=== PATIENT | female | born 1995 | race Caucasian/White ===

== ENCOUNTER 2023-12-10 11:55 | Inpatient (IN) ==
[2023-12-10] MEDS ORDERED: ONDANSETRON INJ 2 MG/ML 2 ML VIAL IV PRN ×2 (12:12→16:37)
[2023-12-10] MEDS ORDERED: ACETAMINOPHEN 325 MG TAB PO PRN (12:12)
--- NOTE | 2023-12-10 12:30 | History & Physical Report ---
Date of Service December 10, 2023 Assessment & Plan (1) Febrile illness: Plan: Patient presents with symptoms of back ache, loss of bladder control during repeated episodes of emesis, and is also found to have fever and tachypnea/tachycardia, with normal O2 sat on RA. No objective signs right now of labor or ROM. Suspect armen londono and urinary incontinence. She currently denies sick contacts or other symptoms but will run BioFire panel, high local rates of Influenza currently and patient with tachypnea. O2 sats currently OK. heart tones Cat 2 but most c/w maternal fever and dehydration; will attempt resuscitation steps with IV hydration and tylenol, could move to delivery if unable to normalize soon. History of Present Illness Primary Care Provider: NO PCP 28yo at 38w0d. Patient notes daily vomiting up to 4x/day during this . Beginning this morning at 0730 she vomited but did not think much of it as she usually does so. Shortly thereafter she began having what the thought were "hot flashes" but did not take her temperature. She called our office to c/o "dehydration" as she stated to our OB nurse that she "often gets dehydrated because of the vomiting" and she thought she might need to go to the ER for IV fluids. Was told to do so. On arrival to ER triage area, patient was found to have soaking wet pants c/w either urination or ROM. Patient states she knows she lost control of her bladder during an episode of emesis, but also has had disorganized cramping for several days, so due to concern for ROM/Labor she was sent to L&D. Patient triaged immediately on arrival to L&D. She c/o non-timeable back pain that she does not believe is c/w contractions but nonetheless quite uncomfortable, and asserts the baby is "very low" as it "dropped a few days ago" so she's been having worse back pain. Has been feeling FM but feels it's less intense than it was before the baby "dropped." Allergies Allergy/AdvReac Type Severity Reaction Status Date / Time No Known Allergies Allergy Verified 12/04/23 11:07 Home Medications Medication Instructions Recorded Confirmed Type [id number] acid PO 05/13/23 12/04/23 History [ Multi] Past Med/Surg History Medical History Anemia Varicella vaccination Surgical History S/P wisdom tooth extraction S/P knee surgery S/P breast lumpectomy Family History Grandmother (Maternal) Breast cancer Grandfather (Maternal) Colorectal cancer Denies family history of Ovarian cancer Social History Smoking Status: Never smoker Do You Dip or Chew Tobacco: No; Hx Alcohol Use: No Hx Substance Use: No Preferred Language: Maltese Communication Ability: Effective Transport Tank Technician Required: No Beliefs That Will Affect Care: None marital status: marital status details: Leandro Batista (29) [phone] Current Living Situation: Spouse Current Living Situation Comment: lives with spouse, children, dog current occupational status: unemployed current occupation: homemaker Other Information That Helps Us Care for You: No Feels Safe at Home: Yes Safety Concerns: Feels Safe At This Time Assistive Devices: None Physical Exam Genitourinary: She is noted to have fever of 103F, tachypnea, facial flushing, and urine odor with soaked pants / wheelchair seat. SSE shows no evidence of ROM; thick white leukorrhea without any clear fluid mixed in, cervix visually closed. Digital exam then shows 1/th/hi cervix. FHT are baseline 180 with mod veronica no accels no decels, likely 2/2 maternal fever. Results & Data Results & Data Vital Signs (Past 12 Hours) Vital Signs Pulse BP Pulse Ox 12/10/23 12:11 116 H 98 12/10/23 12:09 125 H 130/66 Code Status & VTE Plan VTE Prophylaxis Plan VTE Prophylaxis will be ordered: Yes PG Care Time/CCT Total # of Minutes Spent Total Time Spent with Patient: Total time spent is greater than 50% in coordination of care (as documented) at patient's floor/unit and/or counseling patient: Coding Level of Care Code None Diagnoses Febrile illness R50.9
[2023-12-10 12:44] LABS: Eosinophils # (auto) 0.02 K/uL (0.00-0.50); Eosinophils % (auto) 0.4 %; Hematocrit (blood only) 30.2 % (37.0-47.0); Immature Granulocytes # (auto) 0.02 K/uL (0.01-0.20); Immature Granulocytes % (auto) 0.4 %; Lymphocytes # (auto) 0.19 K/uL (1.20-3.40); Lymphocytes % (auto) 3.6 %; Mean Corpuscular Hemoglobin 26.2 pg (25.0-34.0); Mean Corpuscular Hgb Conc 33.1 g/dL (32.0-36.0); Mean Corpuscular Volume 79.1 fL (80.0-100.0); Mean Platelet Volume 10.3 fL (9.4-12.4); Monocytes # (auto) 0.51 K/uL (0.11-0.59); Monocytes % (auto) 9.6 %; Neutrophils # (auto) 4.55 K/uL (1.40-6.50); Platelet Count 227 K/uL (130-400); RDW Coefficient of Variation 14.7 % (11.5-14.5); RDW Standard Deviation 41.7 fL (36.4-46.3); Red Blood Count 3.82 M/uL (4.20-5.40); White Blood Count 5.29 K/ul (4.8-10.8)
[2023-12-10] MEDS: LACTATED RINGER'S 1,000 ML IV PRN (12:44)
[2023-12-10] MEDS: ACETAMINOPHEN 650 MG SUPP PR STA (12:49)
[2023-12-10 13:07] LABS: Albumin Globulin Ratio 1.1 (0.9-2); Albumin Level 3.2 gm/dl (3.4-5.0); BUN Creatinine Ratio 13.6 (10-20); Bilirubin,Total 0.4 mg/dl (0.2-1.0); Calcium 8.3 mg/dl (8.6-10.3); Creatinine Clr Calc Pharmacy 167.7 ml/min; Est GFR (African American) 143.6 ml/min; Est GFR (Non-African American) 123.9 ml/min; Globulin 2.9 gm/dl (2.5-4.0); Potassium 3.8 mmol/L (3.5-5.1); Total Protein 6.1 gm/dl (6.0-8.3)
[2023-12-10 14:11] LABS: Appearance Urine Cloudy (Clear); Blood Urine Negative (Negative); Color Urine Dark Yellow; Epithelial Cell Urine Auto >30 /lpf (0-5); Glucose Urine UA Negative (Negative); Ketones Urine 1+ (Negative); Leukocyte Esterase Urine 1+ (Negative); Nitrite Urine Negative (Negative); Protein Urine Trace (Negative); RBC Urine Automated 0-4 /hpf (0-4); Specific Gravity Urine 1.028 (1.000-1.030); Urobilinogen Urine Negative (Negative); pH Urine 6.5 (4.5-7.5)
[2023-12-10 14:13] LABS: Bilirubin Urine 1+ (Negative)
[2023-12-10 14:18] LABS: Adenovirus PCR Not Detected (NotDetected); Bordetella parapertussis PCR Not Detected (NotDetected); Bordetella pertussis PCR Not Detected (NotDetected); Chlamydia pneumoniae PCR Not Detected (NotDetected); Coronavirus 229E PCR Not Detected (NotDetected); Coronavirus CoV-2 (COVID19)PCR Not Detected (NotDetected); Coronavirus HKU1 PCR Not Detected (NotDetected); Coronavirus NL63 PCR Not Detected (NotDetected); Coronavirus OC43PCR Not Detected (NotDetected); Human Metapneumovirus PCR Not Detected (NotDetected); Influenza A PCR Not Detected (NotDetected); Influenza B PCR Not Detected (NotDetected); Mycoplasma pneumoniae PCR Not Detected (NotDetected); Parainfluenza Virus 1 PCR Not Detected (NotDetected); Parainfluenza Virus 2 PCR Not Detected (NotDetected); Parainfluenza Virus 3 PCR Not Detected (NotDetected); Parainfluenza Virus 4 PCR Not Detected (NotDetected); Respiratory Syncytial VirusPCR Not Detected (NotDetected); Rhinovirus/Enterovirus PCR Not Detected (NotDetected)
[2023-12-10 14:26] LABS: Bacteria Urine Automated 1+ (Negative)
--- NOTE | 2023-12-10 14:55 | Obstetrical Progress Note ---
Date of Service December 10, 2023 Assessment & Plan (1) Febrile illness: Plan: Unclear etiology of fever, however seems not likely respiratory viral due to negative panel, not likely urine though culture is pending, doubt chorio with 2x negative SSE for ROM, but status nonreassuring and will proceed with recommendation for . (2) History of delivery, currently : Subjective Results reviewed - Temp has decreased to as low as 100.2F. Resp rate improved but still elevated at 28. No leukocytosis. BioFire panel all negative. Urine contaminated, not strongly suggestive of a urinary source of fever. Pt was made aware. Patient was re-questioned about her history of recent events as I am struggling to find an etiology for her fever of 103. She has a wandering way of answering questions and needed to be redirected often, with FOB also adding some details, noting as he spoke up that the patient is sleep deprived and very tired so he might need to help her remember and relate the recent events. New info includes that she awoke at 3am with chills and took a warm shower due to those, which she previously had not mentioned. She also says that she had timeable contractions three days ago but they never got closer than 30 min apart. Since then, when she complains of cramping it has been disorganized and in the low back and pelvis, and she mentions often that she feels this is due to the baby's head being very low. She also thought her water broke a few weeks ago but reports she was examined and this was ruled out. She has a very red flushed-appearing face, and while it has improved since her fever was at its highest, she is still juan jose-cheeked. She notes this is her baseline due to Rosacea and FOB notes this is a normal degree of redness for her. She denies urinary symptoms, she denies sore throat, denies cough, denies sick contacts. She says her pain has been 7/10 in the low back since her arrival. She is again asking for narcotic pain management. Previously I discussed with her that since she was speaking normally and in no obvious distress, I preferred to use only tylenol for what is likely normal third-trimester discomfort so I could better interpret her FHT. Physical Exam Physical Exam: Obese / gravid female appearing stated age. Red cheeks. Still has notably elevated breathing rate but not in distress. Resting supine with HOB up about 30deg. Mask on chin, pt not eager to wear this, asks if she needs to. Speaking at normal rate/rhythm. Abdomen / fundus nontender, per RN Smeal and I agree. Cervix SSE repeated to r/o ROM again and still has no pooling and nitrazine negative fluid. FHT had been 160 mod veronica -acc -dec, however as I sit to write this note, deep variables resumed Q5min. Results & Data Vital Signs (Past 12 Hours) Vital Signs Temp Pulse Resp BP Pulse Ox 12/10/23 14:43 96 12/10/23 14:43 114 H 12/10/23 14:39 92 12/10/23 14:39 111 H 12/10/23 14:38 97 12/10/23 14:38 119 H 12/10/23 14:33 97 12/10/23 14:33 119 H 12/10/23 14:28 95 12/10/23 14:28 118 H 12/10/23 14:27 94 12/10/23 14:27 111 H 12/10/23 14:23 96 12/10/23 14:23 115 H 12/10/23 14:22 28 H 12/10/23 14:22 100.2 F H 28 H 12/10/23 14:22 114 H 12/10/23 14:22 111/59 L 12/10/23 14:18 95 12/10/23 14:18 111 H 12/10/23 14:13 96 12/10/23 14:13 114 H 12/10/23 14:08 98 12/10/23 14:08 114 H 12/10/23 14:03 96 12/10/23 14:03 113 H 12/10/23 13:58 96 12/10/23 13:58 112 H 12/10/23 13:52 96 12/10/23 13:52 110 H 12/10/23 13:48 97 12/10/23 13:48 108 H 12/10/23 13:43 96 12/10/23 13:43 107 H 12/10/23 13:38 97 12/10/23 13:38 116 H 12/10/23 13:33 97 12/10/23 13:33 113 H 12/10/23 13:28 100 12/10/23 13:28 118 H 12/10/23 13:23 98 12/10/23 13:23 116 H 12/10/23 13:18 97 12/10/23 13:18 115 H 12/10/23 13:13 99 12/10/23 13:13 108 H 12/10/23 13:08 99 12/10/23 13:08 111 H 12/10/23 13:03 98 12/10/23 13:03 112 H 12/10/23 12:58 99 12/10/23 12:58 112 H 12/10/23 12:53 99 12/10/23 12:53 115 H 12/10/23 12:52 36 H 12/10/23 12:52 101.8 F H 36 H 12/10/23 12:52 111 H 12/10/23 12:52 108/51 L 12/10/23 12:48 97 12/10/23 12:48 113 H 12/10/23 12:43 100 12/10/23 12:43 115 H 12/10/23 12:38 100 12/10/23 12:38 116 H 12/10/23 12:33 100 12/10/23 12:33 116 H 12/10/23 12:28 100 12/10/23 12:28 115 H 12/10/23 12:23 100 12/10/23 12:23 119 H 12/10/23 12:11 116 H 98 12/10/23 12:09 103.1 F H 125 H 32 H 130/66 PG Care Time/CCT Total # of Minutes Spent Total Time Spent with Patient: Total time spent is greater than 50% in coordination of care (as documented) at patient's floor/unit and/or counseling patient: Coding Level of Care Code None Diagnoses Febrile illness R50.9 History of delivery, currently O09.899
[2023-12-10] MEDS: MoRPHine SULFATE 2 MG/ML CARP IV STA (15:18)
[2023-12-10] MEDS ORDERED: OXYTOCIN 10 UNITS/ML VIAL ONE (15:48)
[2023-12-10] MEDS ORDERED: fentaNYL citrate PF 100 MCG/2 ML VIAL ONE (15:48)
[2023-12-10] MEDS ORDERED: ONDANSETRON INJ 2 MG/ML 2 ML VIAL ONE (15:48)
[2023-12-10] MEDS ORDERED: MoRPHine SULFATE PF 1 MG/ML 10 ML AMP/VIAL ONE (15:48)
[2023-12-10] MEDS ORDERED: KETOROLAC 30 MG/ML VIAL ONE (15:48)
--- NOTE | 2023-12-10 16:12 | Anesthesiology Consultation ---
Date of Service December 10, 2023 Assessment & Plan (1) Encounter for pre-operative examination: Chart Review Chart Review: Acceptable Risk for Surgery and Patient NOT seen in Pre Admission Testing Consults Requested none History Height/Weight Height: 5 ft 6 in Weight: 99.79 kg Allergies Allergy/AdvReac Type Severity Reaction Status Date / Time No Known Allergies Allergy Verified 12/04/23 11:07 Medications Home Medications Medication Instructions Recorded Confirmed Last Taken [id number] acid PO 05/13/23 12/04/23 12/09/23 08:00 [ Multi] Active Medications Generic Name Dose Route Start Last Admin Trade Name Freq PRN Reason Stop Dose Admin Lactated Ringer's 1,000 mls @ 250 mls/hr 12/10/23 12:12 12/10/23 15:12 Lr IV 01/09/24 12:11 999 mls/hr .Q4H PRN Infusion L&D Protocol Protocol Past Medical History Medical History Anemia Varicella vaccination Past Family History Family History Grandmother (Maternal) Breast cancer Grandfather (Maternal) Colorectal cancer Denies family history of Ovarian cancer Past Surgical History Surgical History S/P wisdom tooth extraction S/P knee surgery S/P breast lumpectomy Social History Smoking Status: Never smoker Do You Dip or Chew Tobacco: No Hx Alcohol Use: No Hx Substance Use: No Physical Exam Vital Signs Last Vital Signs Temp 100.0 F H 12/10/23 15:07 Pulse 114 H 12/10/23 16:08 Resp 30 H 12/10/23 15:07 BP 116/61 12/10/23 15:07 Pulse Ox 99 12/10/23 16:08 Testing Laboratory Results 12/10/23 12:21 12/10/23 12:21 Urine Color Dark Yellow 12/10/23 Unknown Urine Appearance Cloudy (Clear) A 12/10/23 Unknown Urine pH 6.5 (4.5-7.5) 12/10/23 Unknown Ur Specific [place] 1.028 (1.000-1.030) 12/10/23 Unknown Urine Protein Trace (Negative) H 12/10/23 Unknown Urine Glucose (UA) Negative (Negative) 12/10/23 Unknown Urine Ketones 1+ (Negative) H 12/10/23 Unknown Urine Nitrite Negative (Negative) 12/10/23 Unknown Ur Leukocyte Esterase 1+ (Negative) H 12/10/23 Unknown Urine WBC (Auto) 5-10 /hpf (0-5) H 12/10/23 Unknown Urine RBC (Auto) 0-4 /hpf (0-4) 12/10/23 Unknown U Hyaline Cast (Auto) 1-5 /lpf (0-5) 12/10/23 Unknown U Epithel Cells (Auto) >30 /lpf (0-5) H 12/10/23 Unknown Urine Bacteria (Auto) 1+ (Negative) H 12/10/23 Unknown
[2023-12-10] MEDS: CITRIC ACID/SODIUM CITRATE 15 ML UDC PO SCH (16:14)
[2023-12-10] MEDS ORDERED: LACTATED RINGER'S 1,000 ML IV SCH (16:15)
[2023-12-10] MEDS ORDERED: PHENYLEPHRINE HCL 10 MG/ML VIAL ONE (16:19)
[2023-12-10 16:25] LABS: Thyroid Stimulating Hormone 1.227 uIu/ml (0.300-4.500)
[2023-12-10] MEDS ORDERED: NALOXONE HCL 0.4 MG/1 ML VIAL/CARP IV PRN (16:37)
[2023-12-10] MEDS ORDERED: LACTATED RINGER'S 500 ML IV PRN (16:37)
[2023-12-10] MEDS ORDERED: diphenhydrAMINE 50 MG/ML VIAL IV PRN (16:37)
[2023-12-10] MEDS ORDERED: NALOXONE HCL 0.08 MG in SYRINGE 1.8 ML IV PRN (16:37)
[2023-12-10] MEDS ORDERED: NALBUPHINE HCL 5 MG in SYRINGE 0 ML IV PRN (16:37)
[2023-12-10] MEDS ORDERED: HYDROmorphone INJ 0.5 MG/0.5 ML SYR IV PRN (16:37)
[2023-12-10] MEDS ORDERED: NALOXONE HCL 1 MG in SODIUM CHLORIDE 0.9% 1,000 ML IV PRN (16:37)
[2023-12-10] MEDS ORDERED: ePHEDrine sulfate 50 MG/ML AMP IV PRN (16:37)
[2023-12-10] MEDS ORDERED: SODIUM CHLORIDE 0.9% 1,000 ML IV SCH (16:45)
[2023-12-10] MEDS ORDERED: DC INTRASPINAL MORPHINE SCH (16:45)
[2023-12-10] MEDS ORDERED: NO NARCOTICS OR SEDATIVES SCH (16:45)
[2023-12-10 17:08] LABS: Appearance Urine Clear (Clear); Bacteria Urine Automated Negative (Negative); Bilirubin Urine Negative (Negative); Blood Urine Negative (Negative); Color Urine Dark Yellow; Epithelial Cell Urine Auto >30 /lpf (0-5); Glucose Urine UA Negative (Negative); Ketones Urine 4+ (Negative); Leukocyte Esterase Urine Trace (Negative); Nitrite Urine Negative (Negative); Protein Urine Trace (Negative); RBC Urine Automated 0-4 /hpf (0-4); Specific Gravity Urine 1.025 (1.000-1.030); Urobilinogen Urine Negative (Negative); pH Urine 6.5 (4.5-7.5)
[2023-12-10] MEDS ORDERED: BENZOCAINE 20% SPRY 85 APPLN/85 GM CAN EXT PRN (17:09)
[2023-12-10] MEDS ORDERED: HYDROCORTISONE ACETATE 25 MG SUPP PR PRN (17:09)
[2023-12-10] MEDS ORDERED: SENNA 8.6 MG TAB PO PRN (17:09)
[2023-12-10] MEDS ORDERED: MAGNESIUM HYDROXIDE SUSP 30 ML UDC PO PRN (17:09)
[2023-12-10 17:11] LABS: CO2 Cord Arterial Blood 47 mmHg (39.1-73.5); HCO3 Cord Arterial Blood 20 mmol/L (19.7-28.5); Oxygen Sat Cord Arterial Blood < 60.0 % (<60); PO2 Cord Arterial Blood < 20 mmHg (4.1-31.7); pH Cord Arterial Blood 7.23 (7.1-7.38)
--- NOTE | 2023-12-10 17:13 | Operative Report ---
PG Post Operative Report Pre & Post Diagnosis Operation Date: 12/10/23 16:15 [facility] @ 38w0d Febrile maternal illness Nonreassuring Heart tones I identified the patient and participated in the time-out.: Yes Procedure Operation Date: 12/10/23 16:15 Primary Low Transverse Section Surgeon Norma Crews MD Brim Pouncer Ronal Carrillo Estimated Blood Loss 500 Findings Consistent with Post-Op Diagnosis (Thick meconium at ROM) Specimens Cord blood Cord gases Placenta Anesthesia Type Spinal Complications none Disposition Accompanied Patient To Recovery: Yes Disposition: L&D Description of Procedure The patient was placed operating table in the supine position with a leftward tilt. She was prepped and draped in standard sterile fashion. The anesthetic was tested and found to be adequate. A time-out was held, identifying correct pat ient, procedure, positioning and preoperative antibiotics. There were no concerns. A Pfannenstiel skin incision was made with a knife and taken down to the underlying layer of fascia. The fascia was incised in the midline with the knife and taken out laterally with scissors. The superior edge of the fascial incision was grasped, elevated and dissected off the underlying rectus both superiorly and inferiorly. The muscles were bluntly in the midline. The peritoneum was entered bluntly. The incision was then stretched. The bladder retractor was placed. The vesicouterine peritoneum was identified, entered with scissors and taken out laterally with scissors. The bladder flap was created digitally. A hysterotomy incision was created transversely in the lower uterine segment, final entry being accomplished in a blunt manner with the multiple effect evaporator operator's fingers. Thick meconium stained amniotic fluid was encountered. The multiple effect evaporator operator's hand was used to elevate the head to the hysterotomy. The head was delivered using mild fundal pressure, and the shoulders and body followed without difficulty. The cord was clamped and cut and the was then handed off to the awaiting painter mirror. Cord blood was obtained. The placenta was Manually extracted. The uterus was exteriorized and cleared of all clot and debris with moistened laparotomy sponges. The hysterotomy incision was repaired in two layers, the first in a running locked layer, the second in an imbricating layer. The ovaries and tubes were seen to be normal bilaterally. The uterus was gently replaced in the abdomen, and the gutters were cleared of clot and debris. A final inspection of the hysterotomy revealed good hemostasis. The rectus muscles were allowed to reapproximate naturally. The fascia was then reapproximated with 1 Vicryl in a running nonlocked manner. The fascia was examined and found to be free of defect following closure. The subcutaneous tissue was copiously irrigated and reapproximated with 0-chromic, then the skin edges were closed with 4-0 monocryl in a subcuticular fashion. A dermabond dressing was applied. The gates was found to be draining clear yellow urine at completion of the procedure. I attest to the content of the Intraoperative Record and any orders documented therein. Any exceptions are noted below. I attest to the content of the Intraoperative Record and any orders documented therein. Any exceptions are noted below.
[2023-12-10 17:14] LABS: Base Excess Cord Venous Blood -7.5 mEq/L (-7.7-1.9); Cord Venous Blood HCO3 19 mmol/L (18.4-26.8); Cord Venous Blood PCO2 40 mmHg (30.4-57.2); Cord Venous Blood PO2 < 20 mmHg (14.1-43.3); Cord Venous Blood pH 7.28 (7.20-7.44); O2 Saturation Cord Venous Bld < 60.0 % (<68)
[2023-12-10 17:36] LABS: Mucus Urine Present (None Prsent)
[2023-12-10 17:42] LABS: Amphetamines+Metham, Urine Neg (Neg); Barbiturates, Urine Neg (Neg); Benzodiazepine, Urine Neg (Neg); Cocaine, Urine Neg (Neg); MDMA (Ecstacy), Urine Neg (Neg); Marijuana, Urine Neg (Neg); Methadone, Urine Neg (Neg); Opiate, Urine Neg (Neg); Phencyclidine, Urine Neg (Neg)
--- NOTE | 2023-12-10 18:25 | Anesthesiology Progress Note ---
Date of Service December 10, 2023 Anesthesia Post Procedure Vital Signs Vital Signs: Temp Pulse Resp BP Pulse Ox 12/10/23 18:21 95 12/10/23 18:21 98 H 12/10/23 18:16 95 12/10/23 18:16 98 H 12/10/23 18:11 20 12/10/23 18:11 95 12/10/23 18:11 98 H 12/10/23 18:10 101 H 12/10/23 18:10 115/58 L 12/10/23 18:06 96 12/10/23 18:06 98 H 12/10/23 18:01 22 12/10/23 18:01 95 12/10/23 18:01 99 H 12/10/23 18:01 114/60 12/10/23 17:56 97 12/10/23 17:56 102 H 12/10/23 17:52 100 H 12/10/23 17:52 105/52 L 12/10/23 17:51 22 12/10/23 17:51 94 12/10/23 17:51 101 H 12/10/23 17:46 96 12/10/23 17:46 98 H 12/10/23 17:42 96 H 12/10/23 17:42 111/55 L 12/10/23 17:41 20 12/10/23 17:41 95 12/10/23 17:41 97 H 12/10/23 17:40 94 12/10/23 17:40 97 H 12/10/23 17:36 97 12/10/23 17:36 98 H 12/10/23 17:31 22 12/10/23 17:31 95 12/10/23 17:31 95 H 12/10/23 17:31 99/52 L 12/10/23 17:26 96 12/10/23 17:26 100 H 12/10/23 17:22 102 H 12/10/23 17:22 100/50 L 12/10/23 17:21 24 12/10/23 17:21 94 12/10/23 17:21 104 H 12/10/23 17:16 95 12/10/23 17:16 98 H 12/10/23 17:12 94 12/10/23 17:12 103 H 12/10/23 17:11 98.6 F 22 12/10/23 17:11 95 12/10/23 17:11 102 H 12/10/23 17:11 105/52 L 12/10/23 16:13 98 12/10/23 16:13 113 H 12/10/23 16:11 30 H 12/10/23 16:11 99.9 F H 30 H 12/10/23 16:11 112 H 12/10/23 16:11 112/61 12/10/23 16:08 99 12/10/23 16:08 114 H 12/10/23 16:03 97 12/10/23 16:03 112 H 12/10/23 15:58 99 12/10/23 15:58 114 H 12/10/23 15:53 96 12/10/23 15:53 119 H 12/10/23 15:48 98 12/10/23 15:48 117 H 12/10/23 15:43 97 12/10/23 15:43 112 H 12/10/23 15:38 97 12/10/23 15:38 117 H 12/10/23 15:33 95 12/10/23 15:33 113 H 12/10/23 15:28 95 12/10/23 15:28 110 H 12/10/23 15:23 96 12/10/23 15:23 119 H 12/10/23 15:18 98 12/10/23 15:18 113 H 12/10/23 15:13 94 12/10/23 15:13 115 H 12/10/23 15:13 95 12/10/23 15:13 114 H 12/10/23 15:08 97 12/10/23 15:08 115 H 12/10/23 15:07 114 H 12/10/23 15:07 116/61 12/10/23 15:07 30 H 12/10/23 15:07 100.0 F H 30 H 12/10/23 15:03 97 12/10/23 15:03 122 H 12/10/23 14:58 96 12/10/23 14:58 108 H 12/10/23 14:53 96 12/10/23 14:53 113 H 12/10/23 14:48 96 12/10/23 14:48 111 H 12/10/23 14:43 96 12/10/23 14:43 114 H 12/10/23 14:39 92 12/10/23 14:39 111 H 12/10/23 14:38 97 12/10/23 14:38 119 H 12/10/23 14:33 97 12/10/23 14:33 119 H 12/10/23 14:28 95 12/10/23 14:28 118 H 12/10/23 14:27 94 12/10/23 14:27 111 H 12/10/23 14:23 96 12/10/23 14:23 115 H 12/10/23 14:22 28 H 12/10/23 14:22 100.2 F H 28 H 12/10/23 14:22 114 H 12/10/23 14:22 111/59 L 12/10/23 14:18 95 12/10/23 14:18 111 H 12/10/23 14:13 96 12/10/23 14:13 114 H 12/10/23 14:08 98 12/10/23 14:08 114 H 12/10/23 14:03 96 12/10/23 14:03 113 H 12/10/23 13:58 96 12/10/23 13:58 112 H 12/10/23 13:52 96 12/10/23 13:52 110 H 12/10/23 13:48 97 12/10/23 13:48 108 H 12/10/23 13:43 96 12/10/23 13:43 107 H 12/10/23 13:38 97 12/10/23 13:38 116 H 12/10/23 13:33 97 12/10/23 13:33 113 H 12/10/23 13:28 100 12/10/23 13:28 118 H 12/10/23 13:23 98 12/10/23 13:23 116 H 12/10/23 13:18 97 12/10/23 13:18 115 H 12/10/23 13:13 99 12/10/23 13:13 108 H 12/10/23 13:08 99 12/10/23 13:08 111 H 12/10/23 13:03 98 12/10/23 13:03 112 H 12/10/23 12:58 99 12/10/23 12:58 112 H 12/10/23 12:53 99 12/10/23 12:53 115 H 12/10/23 12:52 36 H 12/10/23 12:52 101.8 F H 36 H 12/10/23 12:52 111 H 12/10/23 12:52 108/51 L 12/10/23 12:48 97 12/10/23 12:48 113 H 12/10/23 12:43 100 12/10/23 12:43 115 H 12/10/23 12:38 100 12/10/23 12:38 116 H 12/10/23 12:33 100 12/10/23 12:33 116 H 12/10/23 12:28 100 12/10/23 12:28 115 H 12/10/23 12:23 100 12/10/23 12:23 119 H 12/10/23 12:11 116 H 98 12/10/23 12:09 103.1 F H 125 H 32 H 130/66 Transfer of Care Handoff Completed per policy Notes Mental Status: alert / awake / arousable and participated in evaluation Patient Amnestic to Procedure: Yes Nausea / Vomiting: adequately controlled Pain: adequately controlled Airway Patency, RR, SpO2: stable & adequate BP & HR: stable & adequate Hydration State: stable & adequate Neuraxial Anesthesia: was administered and sensory block is resolving Anesthetic Complications: no major complications apparent and Pt Satisfied with anesthetic care
[2023-12-10] MEDS: MoRPHine SULFATE PF 1 MG/ML 10 ML AMP/VIAL INT SPINAL ONE (18:29)
[2023-12-10] MEDS: LACTATED RINGER'S 1,000 ML IV SCH (18:29)
[2023-12-10] MEDS: DIPHTHER/TETAN/PERTUS Vaccine (Tdap, Adol/Adult) 0.5mL IM ONE (18:30)
[2023-12-10] MEDS: SIMETHICONE 80 MG CHEW PO SCH (18:34)
[2023-12-10] MEDS: OXYTOCIN 30 UNITS/LR 1,003 ML IV SCH (18:44)
[2023-12-10] MEDS: ACETAMINOPHEN 1,000 MG/100 ML VIAL IV PRN (18:44)
[2023-12-10] MEDS: LACTATED RINGER'S 1,000 ML IV ONE (19:25)
[2023-12-10 19:52] LABS: Hematocrit (blood only) 25.4 % (37.0-47.0); Hemoglobin 8.1 g/dl (12.0-16.0)
[2023-12-10] MEDS ORDERED: SODIUM CHLORIDE 0.9% 250 ML IV PRN (20:45)
[2023-12-10] MEDS: DOCUSATE SODIUM 100 MG CAP PO SCH (21:08)
[2023-12-10] MEDS: KETOROLAC 30 MG/ML VIAL IV PRN (21:14)
[2023-12-11] MEDS: AMPICILLIN/SULBACTAM SOD 3,000 MG in SODIUM CHLOR 0.9% MINI-B 100 ML IV STA (04:28)
[2023-12-11] MEDS: LACTATED RINGER'S 1,000 ML IV SCH (05:05)
--- NOTE | 2023-12-11 05:48 | Obstetrical Progress Note ---
Date of Service December 11, 2023 Assessment & Plan (1) Encounter for assessment: (2) Vaginal bleeding during , antepartum: Plan 28 yo post day 1 c section Vital signs reviewed Hgb yesterday 8.1. Pending today. Rubella immune Pain well controlled Continue ambulation Encourage Admission and Anticipated Discharge Date Admission Date: December 10, 2023 Supervising Physician Co-Signing Physician Notes Resident Physician Supervision Note: I interviewed and examined the patient. Discussed with Dr. Carrillo and agree with findings and plan as documented in the note. Any exceptions or clarifications are listed here: Still no obvious etiology of fever; suspect viral due to lack of leukocytosis but source remains uncertain at this time. Multiple etiologies considered including infectious as well as noninfectious such as thyroid storm (tachycardia, tachypnea + fever) and lupus/autoimmune flare. Patient has rosacea and daughter has eczema but no other h/o autoimmune conditions in the family. No meds or supplements to cause drug reaction. Unasyn started when fever returned at 0300 this morning to cover for possible listeriosis (blood cx pending but were drawn after periop abx given) and/or endomyometritis, though no uterine tenderness so frankly neither seems likely. Inability to mount a typical WBC elevation after especially via CSec is noted. Above were discussed with oncoming coverage. Documented By: Norma Crews MD, FACOG Subjective Malka Batista is a 28 yo day 2 s/p C/S at weeks 38 complicated by febrile maternal illness and NR heart tones. The patient is has ambulated once. She has not voided stool but has passed gas. She is on a regular diet. She admits to some lochia and rates her pain at a 4 out of 10 severity, she has not taken any ibuprofen or oxycodone. Breast feeding. Resting comfortably this AM in NAD. Denies TOBIN, CP, SOB, N/V/D, LE pain/swelling. Review of Systems Review of Systems: as per HPI Physical Exam Physical Exam: General: patient resting comfortably, NAD, non-toxic in appearance, AA&O x 4, answers questions appropriately. Skin: warm, dry, intact Heart: regular RR no m/r/g Lungs: CTAB no rales/rhonchi/wheezes Abd: soft non-distended with normal active bowel sounds, incision intact clean, no bleeding, no erythema, no purulent drainage, no signs of infection. Ext: no edema Neuro: nonfocal, patient AA&O x 4, speech intact, no facial droop, moving all extremities on command. Results & Data Vital Signs (Past 12 Hours) Vital Signs Temp Pulse Pulse Resp BP BP Pulse Ox 12/11/23 05:15 36.9 C 12/11/23 05:00 20 96 12/11/23 04:00 20 96 12/11/23 03:03 22 98 12/11/23 03:03 38.3 C H 110 H 22 133/86 98 12/11/23 02:02 18 99 12/11/23 00:54 18 98 12/11/23 00:00 20 97 12/10/23 23:19 36.4 C L 75 18 108/66 99 12/10/23 23:00 20 99 12/10/23 21:45 18 99 12/10/23 21:40 12/10/23 21:40 36.4 C L 85 18 103/64 99 12/10/23 21:09 100 12/10/23 21:09 85 12/10/23 21:04 100 12/10/23 21:04 88 12/10/23 20:59 100 12/10/23 20:59 89 12/10/23 20:54 100 12/10/23 20:54 88 12/10/23 20:49 100 12/10/23 20:49 90 12/10/23 20:44 100 12/10/23 20:44 91 H 12/10/23 20:39 100 12/10/23 20:39 83 12/10/23 20:35 20 98 12/10/23 20:34 99 12/10/23 20:34 81 12/10/23 20:29 100 12/10/23 20:29 87 12/10/23 20:24 100 12/10/23 20:24 90 12/10/23 20:19 99 12/10/23 20:19 89 12/10/23 20:14 98 12/10/23 20:14 87 12/10/23 20:09 98 12/10/23 20:09 86 12/10/23 19:51 98 12/10/23 19:51 88 12/10/23 19:49 92 12/10/23 19:49 85 12/10/23 19:46 98 12/10/23 19:46 95 H 12/10/23 19:41 99 12/10/23 19:41 95 H 12/10/23 19:41 93 H 12/10/23 19:41 97/53 L 12/10/23 19:36 98 12/10/23 19:36 93 H 12/10/23 19:31 97 12/10/23 19:31 91 H 12/10/23 19:30 22 98 12/10/23 19:30 36.6 C 22 12/10/23 19:26 95 12/10/23 19:26 91 H 12/10/23 19:21 97 12/10/23 19:21 93 H 12/10/23 19:16 96 12/10/23 19:16 90 12/10/23 19:11 37 C 22 12/10/23 19:11 95 12/10/23 19:11 91 H 12/10/23 19:11 98/52 L 12/10/23 19:06 97 12/10/23 19:06 98 H 12/10/23 19:01 96 12/10/23 19:01 93 H 12/10/23 18:56 96 12/10/23 18:56 92 H 12/10/23 18:51 94 12/10/23 18:51 92 H 12/10/23 18:46 97 12/10/23 18:46 92 H 12/10/23 18:41 22 12/10/23 18:41 96 12/10/23 18:41 96 H 12/10/23 18:41 94 H 12/10/23 18:41 116/55 L 12/10/23 18:36 96 12/10/23 18:36 97 H 12/10/23 18:31 96 12/10/23 18:31 95 H 12/10/23 18:26 96 12/10/23 18:26 96 H 12/10/23 18:21 95 12/10/23 18:21 98 H 12/10/23 18:16 95 12/10/23 18:16 98 H 12/10/23 18:11 20 12/10/23 18:11 95 12/10/23 18:11 98 H 12/10/23 18:10 101 H 12/10/23 18:10 115/58 L 12/10/23 18:06 96 12/10/23 18:06 98 H 12/10/23 18:01 22 12/10/23 18:01 95 12/10/23 18:01 99 H 12/10/23 18:01 114/60 12/10/23 17:56 97 12/10/23 17:56 102 H 12/10/23 17:52 100 H 12/10/23 17:52 105/52 L 12/10/23 17:51 22 12/10/23 17:51 94 12/10/23 17:51 101 H 12/10/23 17:46 96 12/10/23 17:46 98 H O2 Del Method 12/11/23 05:15 12/11/23 05:00 12/11/23 04:00 12/11/23 03:03 12/11/23 03:03 Room Air 12/11/23 02:02 12/11/23 00:54 12/11/23 00:00 12/10/23 23:19 Room Air 12/10/23 23:00 12/10/23 21:45 12/10/23 21:40 Room Air 12/10/23 21:40 Room Air 12/10/23 21:09 12/10/23 21:09 12/10/23 21:04 12/10/23 21:04 12/10/23 20:59 12/10/23 20:59 12/10/23 20:54 12/10/23 20:54 12/10/23 20:49 12/10/23 20:49 12/10/23 20:44 12/10/23 20:44 12/10/23 20:39 12/10/23 20:39 12/10/23 20:35 12/10/23 20:34 12/10/23 20:34 12/10/23 20:29 12/10/23 20:29 12/10/23 20:24 12/10/23 20:24 12/10/23 20:19 12/10/23 20:19 12/10/23 20:14 12/10/23 20:14 12/10/23 20:09 12/10/23 20:09 12/10/23 19:51 12/10/23 19:51 12/10/23 19:49 12/10/23 19:49 12/10/23 19:46 12/10/23 19:46 12/10/23 19:41 12/10/23 19:41 12/10/23 19:41 12/10/23 19:41 12/10/23 19:36 12/10/23 19:36 12/10/23 19:31 12/10/23 19:31 12/10/23 19:30 12/10/23 19:30 12/10/23 19:26 12/10/23 19:26 12/10/23 19:21 12/10/23 19:21 12/10/23 19:16 12/10/23 19:16 12/10/23 19:11 12/10/23 19:11 12/10/23 19:11 12/10/23 19:11 12/10/23 19:06 12/10/23 19:06 12/10/23 19:01 12/10/23 19:01 12/10/23 18:56 12/10/23 18:56 12/10/23 18:51 12/10/23 18:51 12/10/23 18:46 12/10/23 18:46 12/10/23 18:41 12/10/23 18:41 12/10/23 18:41 12/10/23 18:41 12/10/23 18:41 12/10/23 18:36 12/10/23 18:36 12/10/23 18:31 12/10/23 18:31 12/10/23 18:26 12/10/23 18:26 12/10/23 18:21 12/10/23 18:21 12/10/23 18:16 12/10/23 18:16 12/10/23 18:11 12/10/23 18:11 12/10/23 18:11 12/10/23 18:10 12/10/23 18:10 12/10/23 18:06 12/10/23 18:06 12/10/23 18:01 12/10/23 18:01 12/10/23 18:01 12/10/23 18:01 12/10/23 17:56 12/10/23 17:56 12/10/23 17:52 12/10/23 17:52 12/10/23 17:51 12/10/23 17:51 12/10/23 17:51 12/10/23 17:46 12/10/23 17:46 Resident Activity Tracking Resident Involvement: Resident Care Provided Care Provided: OB Delivery (1) Encounter for assessment visit type: exam and care immediately after delivery Qualified Code(s): Z39.0 - Encounter for care and examination of mother immediately after delivery
[2023-12-11] MEDS ORDERED: CITRIC ACID/SODIUM CITRATE 15 ML UDC PO SCH (06:00)
[2023-12-11 07:13] LABS: Hematocrit (blood only) 24.3 % (37.0-47.0); Hemoglobin 7.8 g/dl (12.0-16.0); Immature Granulocytes # (auto) 0.02 K/uL (0.01-0.20); Immature Granulocytes % (auto) 0.7 %; Lymphocytes # (auto) 0.59 K/uL (1.20-3.40); Lymphocytes % (auto) 19.4 %; Mean Corpuscular Hemoglobin 25.7 pg (25.0-34.0); Mean Corpuscular Hgb Conc 32.1 g/dL (32.0-36.0); Mean Corpuscular Volume 79.9 fL (80.0-100.0); Monocytes # (auto) 0.67 K/uL (0.11-0.59); Neutrophils # (auto) 1.76 K/uL (1.40-6.50); Neutrophils % (auto) 57.9 %; Platelet Count 160 K/uL (130-400); RDW Coefficient of Variation 14.7 % (11.5-14.5); RDW Standard Deviation 43.1 fL (36.4-46.3); Red Blood Count 3.04 M/uL (4.20-5.40); White Blood Count 3.04 K/ul (4.8-10.8)
[2023-12-11 07:34] LABS: RBC Morphology Unremarkable
[2023-12-11] MEDS: PRENATAL VITAMIN 1 TAB PO SCH (08:27)
[2023-12-11] MEDS: FERROUS SULFATE 325 MG TAB PO SCH (08:27)
[2023-12-11] MEDS: AMPICILLIN SOD/SULBACTAM SOD 1,500 MG in SODIUM CHLOR 0.9% MINI-B 100 ML IV SCH (10:14)
[2023-12-11] MEDS ORDERED: diphenhydrAMINE 50 MG/ML VIAL IV PRN (10:38)
[2023-12-11] MEDS ORDERED: diphenhydrAMINE Capsule 25 MG CAP PO PRN (10:38)
[2023-12-11] MEDS ORDERED: PROMETHAZINE HCL 25 MG in SODIUM CHLORIDE 0.9% 50 ML IV PRN (10:38)
[2023-12-11] MEDS ORDERED: KETOROLAC 30 MG/ML VIAL IV PRN (10:38)
[2023-12-11] MEDS: IBUPROFEN 600 MG TAB PO PRN (13:50)
[2023-12-11] MEDS: ONDANSETRON INJ 2 MG/ML 2 ML VIAL IV PRN (13:59)
--- NOTE | 2023-12-11 14:01 | Hospitalist Consultation ---
Date of Consultation December 11, 2023 Assessment & Plan (1) Febrile illness: Fever of unclear origin with leukopenia Presented at 38+0, -0-2-3, with daily vomiting similar to prior and hot flashes with suspected dehydration. Due to nonreassuring heart tones patient presented to delivery by with estimated 500 cc of blood loss. Fever with Tmax 39.5 while in hospital. 24 hours of dry cough as presenting sx. symptoms denies other new infectious symptoms. No rashes, although has felt flushed and that her rosacea slightly. No photosensitivity, nuchal rigidity. Intermittent headache which has improved. Does not appear meningeal at the bedside. Initial workup w/ OB: Bio fire is negative including COVID/flu/RSV. Blood cultures pending. No evidence of chorioamnionitis or endometriosis. TSH normal. UA is contaminated appearing and with trace leukocyte esterase/ketones but no bacteria. UC is pending. HIV was negative 04/2023. Rubella immune, hep B surface and hep C antibody nonreactive. Empirically covered with Unasyn for listeria coverage. CXR without acute findings. Due to nonreproducible chest pain, shortness of breath, tachycardia and increased risk including will obtain CTA-PE. She endorses bilateral leg swelling which has been consistent throughout however this is not asymmetrical and has not changed, without Lyme screen pending Babesia/anaplasmosis peripheral smear pending Peripheral blood smear pending for leukopenia/leukocyte atypia. Given multiple other children, increased flushing of cheeks, and bicytopenia with febrile illness with negative bio fire will expand viral screening to include parvo Continue Unasyn for empiric coverage for at least 48hours while cx and workup is pending. Suspect viral is most likely etiology, broad differential and workup as noted. Blood cultures pending, urine cultures pending. If patient clinically worsens/show signs of toxicity expand coverage to include tickborne/atypical coverage with doxycycline, and MRSA coverage with vancomycin. Chest Pain DDx includes PE, viral willis/myocarditis. Low suspicion for ischemic, w/ troponin negative, EKG is pending. - Worse w/ coughing. bilat upper chest. nonreproducible on palpation. No positi onal change. Inconsistent with costochondritis on physical exam - CXR without acute findings. CTA pending for nonreducible chest discomfort with shortness of breath and creased risk with leg swelling/recent Troponin is normal - EKG pending Bicytopenia Hemoglobin last normal 04/2023. Patient recently delivered by at 38 weeks, preoperatively hemoglobin 10.0 and microcytic; postoperatively 8.1, and 7.8 on trend. Hemoglobin trended, patient crossmatched. Hemoglobin transfusion threshold of 7 or for the development of symptoms. May need 1 unit overnight, signed out to overnight provider Ferritin, transferrin saturation, UIBC pending B12, folate, copper level pending No transaminitis is present -Viral panel pending. Bio fire normal Trend CBC daily , S/post section at 38+0 With persistent nausea/vomiting throughout - care per OB Discussed with OB. Patient did not appear to have endometriosis or chorioamnionitis (2) Encounter for assessment: (3) Anemia: (4) Bicytopenia: (5) Chest pain: History of Present Illness Attending Physician: Norma Crews MD History of Present Illness Malka is a 28-year-old who presented to OB service with nausea/vomiting and a few days of feeling unwell and subsequently was found to have nonreassuring heart tones and proceeded to at 38+0. She has had a dry cough, and felt flushed. She has had a 39.5 and 38.8 peak fever while in the hospital. Josefina reports that her has overall gone well with the exception of some chronic nausea. She reports that she has chronic nausea throughout her entire and vomits around 3-5 times per day and this has not changed significantly in the last week. She has felt more fatigued for around 2 days, and flushed. She has not checked her temperature at home so is not sure if she had a fever. Within the last 24 hours she has developed a dry, nonproductive cough. From coughing she does feel that she has some discomfort in her bilateral upper chest wall 13 out of 10 worsen with cough but not worsened on palpation or deep breathing. She feels slightly short of breath., But is not hypoxic or tachycardic. She denies diarrhea. No hematemesis or melenic emesis. No bright red blood per rectum, no diarrhea, no melena. Endorses some postsurgical abdominal tenderness post otherwise denies abdominal pain. She notes that she had had lumbar back pain worse than usual through this , but that pain has completely resolved following delivery and she currently has no back or spinal pain She denies tick bites and insect bites. Denies rashes. Denies joint pain, denies joint swelling. Denies syncope, presyncope Reports that she takes an iron tablet as needed, otherwise does not take prescription medications. She notes that she has needed iron intermittently ever since teenage years with a family history of slightly heavy menses. She reports she has not started any new medications [id number] or prescription. Denies drug allergies. Denies tobacco, recreational drugs, marijuana use. No alcohol use during , and prior to this intermittent social alcohol use. Endorses a history of rosacea which does feel little worse and with flushing recently. Otherwise denies history of autoimmune/rheumatoid disease. Full Code Allergies Allergy/AdvReac Type Severity Reaction Status Date / Time No Known Allergies Allergy Verified 12/04/23 11:07 Home Medications Medication Instructions Recorded Confirmed Type [id number] acid PO 05/13/23 12/04/23 History [ Multi] Patient History Medical History Anemia Varicella vaccination Surgical History S/P wisdom tooth extraction S/P knee surgery S/P breast lumpectomy Family History Grandmother (Maternal) Breast cancer Grandfather (Maternal) Colorectal cancer Denies family history of Ovarian cancer Social History Smoking Status: Never smoker Do You Dip or Chew Tobacco: No; Hx Alcohol Use: No Hx Substance Use: No Preferred Language: Lao Communication Ability: Effective Engineer Internship Required: No Beliefs That Will Affect Care: None marital status: marital status details: Leandro Batista (29) [phone] Current Living Situation: Spouse Current Living Situation Comment: lives with spouse, children, dog current occupational status: unemployed current occupation: homemaker Other Information That Helps Us Care for You: No Feels Safe at Home: Yes Safety Concerns: Feels Safe At This Time Assistive Devices: None Physical Exam Physical Exam: General: A&Ox3. NAD. Cooperative. Fatigued but nontoxic appearing. Cheeks flushed. HEENT: Atraumatic, normocephalic. PERLAA. Vision/hearing intact bilaterally. Pulm: CTAB A&P. -wheezes, -rales, -rhonchi. Symmetrical chest rise. No increased work of breathing. No respiratory distress. Cardiac: tachycardic, regular, -mrg. Radial pulses intact and symmetrical. Abd without rebound/guarding/soft Ext: Mild LE swelling bilaterally without significant pitting edema. No calf tenderness Results & Data Results & Data Vital Signs (Past 12 Hours) Vital Signs Temp Pulse Resp BP Pulse Ox O2 Del Method 12/11/23 10:05 36.6 C 12/11/23 08:10 16 97 12/11/23 08:10 37.3 C 90 16 110/73 97 Room Air 12/11/23 05:55 18 95 12/11/23 05:15 36.9 C 12/11/23 05:00 20 96 12/11/23 04:00 20 96 12/11/23 03:03 22 98 12/11/23 03:03 38.3 C H 110 H 22 133/86 98 Room Air 12/11/23 02:02 18 99 PG Care Time/CCT Total # of Minutes Spent Total Time Spent with Patient: Total time spent is greater than 50% in coordination of care (as documented) at patient's floor/unit and/or counseling patient: Coding Level of Care Code 00653 IN/OBS CONSULT LVL 4,60M Diagnoses Febrile illness R50.9 Encounter for care or examination of mother immediately after delivery Z39.0 visit type: exam and care immediately after delivery Anemia D64.9 Bicytopenia D75.89 Chest pain R07.9 (2) Encounter for assessment visit type: exam and care immediately after delivery Qualified Code(s): Z39.0 - Encounter for care and examination of mother immediately after delivery
[2023-12-11 15:21] LABS: Procalcitonin 0.06 ng/ml (0-0.5)
[2023-12-11 15:38] LABS: Folate (Folic Acid),Ser orPlas 16.65 ng/ml (>5.38)
[2023-12-11 15:46] LABS: Lyme Screen Rflx Confirmation Negative (Negative)
--- NOTE | 2023-12-11 16:39 | XRay Report ---
TWO VIEW CHEST CLINICAL HISTORY: Cough and dyspnea. FINDINGS: PA and lateral chest radiographs are obtained. No prior studies are available for compariso n at the time of dictation. The cardiomediastinal silhouette is unremarkable. The lungs and pleural spaces are clear. There is no pneumothorax. The bony thorax appears intact. IMPRESSION: No active disease in the chest. ACT 112: Negative or not required by law. Electronically signed by: Grayson Terry M.D. 12/11/2023 4:37 PM
[2023-12-11 19:23] LABS: Hematocrit (blood only) 27.3 % (37.0-47.0); Hemoglobin 9.1 g/dl (12.0-16.0)
[2023-12-11] MEDS: OPTIRAY 320 125ml IV ONE (19:24)
--- NOTE | 2023-12-11 19:35 | CT Scan Report ---
Exam(s): CTA CHEST IV Amt: 117 ml optiray 320 EXAM: CT Angiography Chest With Intravenous Contrast CLINICAL HISTORY: Reason for exam: PE eval. TECHNIQUE: Axial computed tomographic angiography images of the chest with intravenous contrast. CTDI is 24.68 mGy and DLP is 747.66 mGy-cm. Automated exposure control was utilized for the study. A dose lowering technique was utilized adhering to the principles of ALARA. MIP reconstructed images were created and reviewed. COMPARISON: No relevant prior studies available. FINDINGS: Pulmonary arteries: No pulmonary embolism. Aorta: No acute findings. Normal caliber. No dissection. Lungs: Dependent atelectasis within the lower lobes. No consolidation or interstitial edema. Pleural space: Trace pleural effusions. Heart: Unremarkable. Bones/joints: No acute fracture. Soft tissues: Unremarkable. Lymph nodes: Unremarkable. IMPRESSION: 1. No pulmonary embolism. 2. Trace pleural effusions. Electronically signed by: Satya Austin MD 12/11/23 19:34 PM
[2023-12-11 19:53] LABS: Calcium 7.9 mg/dl (8.6-10.3); Potassium 3.5 mmol/L (3.5-5.1)
[2023-12-11 19:59] LABS: BUN Creatinine Ratio 13.1 (10-20); Creatinine Clr Calc Pharmacy 162.2 ml/min; Est GFR (Non-African American) 122.5 ml/min
[2023-12-11] MEDS: bisacodyL 5 MG TABEC PO SCH (22:20)
[2023-12-12] MEDS: oxyCODONE/ACETAMINOPHEN 5mg/325mg TAB PO PRN (06:17)
--- NOTE | 2023-12-12 06:46 | Obstetrical Progress Note ---
Date of Service December 12, 2023 Assessment & Plan (1) Encounter for assessment: (2) Febrile illness: Plan 28 yo post day 1 c section Vital signs reviewed, No fever in the last 24 hrs Hgb yesterday 8.1. Pending today. Rubella immune Pain well controlled Continue ambulation Encourage continue Unasyn, managed by Medicine Admission and Anticipated Discharge Date Admission Date: December 10, 2023 Supervising Physician Co-Signing Physician Notes Resident Physician Supervision Note: I was present with Dr. Concepcion during the history and exam. I discussed the case with the resident and agree with the findings and plan as documented in the note. Any exceptions or clarifications are listed here: pt feeling much better this am, no cp or sob. eating, voiding, ambulating without issue. no pain control issues, using percocet. has not felt nausea since noon yest. +flatus. ab d soft ff 2 down nt, nt calves. enc to use scds while in bed. pod #2 s/p c/s. complicated by presentation of fever of unknown origin. hospitalist medicine involved. all results of tests so far neg. this am cbc is not back. currently only unasyn with plan by collaboration with medicine for 48hrs trt, that means last dose will be 430am on 12/13. cont to monitor for any concerning sx. she is aware cxr and cta were negative. appreciate hospitalist help and input. Documented By: Toya Ricks MD, FACOG Subjective Malka Batista is a 28 yo day 2 s/p C/S complicated by febrile maternal illness and NR heart tones. Patient refers feeling better this morning, no fever overnight. Last one at 1pm . Medicine is following. Unknow etiology of febrile illness. Ambulation: ambulating normally Voiding: no voiding problems Passing Gas: Yes Diet Tolerance:: regular diet Lochia:: Small Feeding Type:breast feeding Current Pain Level: controlled with pain meds Resting comfortably this AM in NAD. Denies TOBIN, CP, SOB, N/V/D, LE pain/swelling. Review of Systems Review of Systems: All systems reviewed & are unremarkable except as noted in HPI & below Physical Exam Physical Exam: General: patient resting comfortably, NAD, non-toxic in appearance, AA&O x 4, answers questions appropriately. Skin: warm, dry, intact HEENT: NC/AT, anicteric sclera, conjunctiva without injection, moist mucus membranes. Heart: +S1/S2, regular, no m/r/g Lungs: equal air entry bilaterally, no rales/rhonchi/wheezes Abd: +BS, soft, NT/ND, uterine fundus firm at umbilicus. Incision is clean, dry, no signs of infection Ext: warm, no clubbing/cyanosis or edema, Milton's neg. Neuro: nonfocal, patient AA&O x 4, speech intact, no facial droop, moving all extremities on command. Results & Data Vital Signs (Past 12 Hours) Vital Signs Temp Pulse Resp BP Pulse Ox O2 Del Method 12/12/23 03:51 36.4 C L 74 14 110/74 98 Room Air 12/11/23 22:58 36.8 C 12/11/23 19:30 36.5 C 89 16 112/70 97 Room Air Resident Activity Tracking Resident Involvement: Resident Care Provided Care Provided: OB Delivery (1) Encounter for assessment visit type: exam and care immediately after delivery Qualified Code(s): Z39.0 - Encounter for care and examination of mother immediately after delivery
--- NOTE | 2023-12-12 07:45 | Hospitalist Progress Note ---
Date of Service December 12, 2023 Assessment & Plan (1) Febrile illness: Plan: Fever of unclear source with leukopenia, fever curve trending down, on unasyn, recommend stop at 48hr if no defined source Presented at 38+0, s/p C section delivery due to nonreassuring heart tones with estimated 500 cc of blood loss. non consistent with endometritis, or cloudy fluid Fever with Tmax 39.5 no clinical signs of infection including no meningeal signs respitory Bio fire is negative Blood cultures pending. UA is contaminated appearing, UCx is pending. HIV was negative 04/2023. Rubella immune, hep B surface and hep C antibody nonreactive. CXR without acute findings. Lyme screen pending Babesia/anaplasmosis peripheral smear pending Continue Unasyn for empiric coverage for at least 48hours . Suspect viral is most likely etiology, Chest Pain, CTA has ruled out PE Bicytopenia, likely anemia of and depressed wbc from viral illness B12, folate, are normal copper level pending (2) Anemia: Admission and Anticipated Discharge Date Admission Date: December 10, 2023 Subjective Pt is without complaints, she has been feeling better and has not had a fever some lower abdomen pain at incision site Physical Exam Physical Exam: awake and alert oral clear neck no LN cardiac is regular lungs are clear abd is soft and no upper quadrant tenderness ext with some edema Results & Data Results & Data Vital Signs (Past 12 Hours) Vital Signs Temp Pulse Resp BP Pulse Ox O2 Del Method 12/12/23 03:51 97.5 F L 74 14 110/74 98 Room Air 12/11/23 22:58 98.2 F Laboratory Results review cbc review chemistry PG Care Time/CCT Total # of Minutes Spent Total Time Spent with Patient: Total time spent is greater than 50% in coordination of care (as documented) at patient's floor/unit and/or counseling patient: Coding Level of Care Code 93431 SUB INP/OBS CARE 2/35MIN Diagnoses Febrile illness R50.9 Anemia D64.9
[2023-12-12 09:21] LABS: Basophils # (auto) 0.01 K/uL (0.00-0.20); Basophils % (auto) 0.3 %; Eosinophils # (auto) 0.01 K/uL (0.00-0.50); Eosinophils % (auto) 0.3 %; Hematocrit (blood only) 28.4 % (37.0-47.0); Hemoglobin 8.9 g/dl (12.0-16.0); Immature Granulocytes # (auto) 0.03 K/uL (0.01-0.20); Immature Granulocytes % (auto) 0.8 %; Mean Corpuscular Hemoglobin 25.4 pg (25.0-34.0); Mean Corpuscular Hgb Conc 31.3 g/dL (32.0-36.0); Mean Corpuscular Volume 81.1 fL (80.0-100.0); Mean Platelet Volume 10.2 fL (9.4-12.4); Monocytes # (auto) 0.33 K/uL (0.11-0.59); Monocytes % (auto) 9.3 %; Neutrophils # (auto) 2.07 K/uL (1.40-6.50); Neutrophils % (auto) 58.3 %; Platelet Count 161 K/uL (130-400); RDW Coefficient of Variation 15.2 % (11.5-14.5); RDW Standard Deviation 43.7 fL (36.4-46.3); White Blood Count 3.55 K/ul (4.8-10.8)
[2023-12-12 09:34] LABS: BUN Creatinine Ratio 13.5 (10-20); Calcium 7.7 mg/dl (8.6-10.3); Creatinine Clr Calc Pharmacy 190.3 ml/min; Est GFR (African American) 149.6 ml/min; Est GFR (Non-African American) 129.1 ml/min; Potassium 3.8 mmol/L (3.5-5.1)
--- NOTE | 2023-12-12 16:35 | Electrocardiogram Report ---
Test Reason : Blood Pressure : / mmHG Vent. Rate : 091 BPM Atrial Rate : 091 BPM P-R Int : 126 ms QRS Dur : 102 ms QT Int : 366 ms P-R-T Axes : 033 021 019 degrees QTc Int : 450 ms Normal sinus rhythm Incomplete right bundle branch block Borderline ECG No previous ECGs available Confirmed by Aldair Lowe ([id number]) on 12/12/2023 4:34:52 PM Referred By: Norma Crews Confirmed By:Adlair Lowe
[2023-12-12] MEDS ORDERED: bisacodyL 10 MG SUPP PR PRN (16:59)
--- NOTE | 2023-12-13 07:20 | Obstetrical Progress Note ---
Date of Service December 13, 2023 Assessment & Plan (1) Encounter for assessment: satisfactory post-op and exam today no longer afebrile- medicine's evaluation and recommendations appreciated most likely source of fever is a non-specific virus will discharge to home follow up in 6 weeks or prn scripts sent to pharmacy visit type: exam and care immediately after delivery Qualified Code(s): Z39.0 - Encounter for care and examination of mother immediately after delivery Subjective Ambulation: ambulating normally Voiding: no voiding problems Passing Gas:: Yes Diet Tolerance:: regular diet Feeding Type:: bottle feeding having some nasal congestion this morning otherwise feels well. pain meds working well. Review of Systems All systems reviewed & are unremarkable except as noted in HPI & below Physical Exam Constitutional WD/WN, vitals as above Gastrointestinal (Abdomen) Inspection/Auscultation: + abdominal surgical incision (dry and intact- no erythema- mild ecchymosis superiorly) Psychiatric A+Ox3, euthymic affect Genitourinary OB Exam Abdomen: + fundal height Fundus: + firm and + relation to umbilicus (2 below) Results & Data Vital Signs (Past 12 Hours) Vital Signs Temp Pulse Resp BP Pulse Ox O2 Del Method 12/13/23 05:10 97.3 F L 80 17 120/86 99 Room Air 12/12/23 23:00 97.3 F L 72 16 101/68 97 Room Air 12/12/23 21:45 Room Air 12/12/23 21:45 97.3 F L 74 16 115/75 99 Room Air
[2023-12-13 07:42] LABS: Anion Gap 6 (3-11); BUN Creatinine Ratio 12.5 (10-20); Blood Urea Nitrogen 6 mg/dl (6-23); Calcium 7.6 mg/dl (8.6-10.3); Carbon Dioxide 23 mmol/L (21-32); Chloride 109 mmol/L (98-107); Creatinine Clr Calc Pharmacy 206.1 ml/min; Est GFR (African American) > 150.0 ml/min; Est GFR (Non-African American) 132.6 ml/min; Glucose 67 mg/dl (70-99(Fasting)); Potassium 3.9 mmol/L (3.5-5.1); Sodium 138 mmol/L (136-145)
[2023-12-15 14:23] LABS: Parvovirus IgG 7.1 (<0.9); Parvovirus IgM 0.1 (<0.9)
[2023-12-15 17:48] LABS: Babesia microti DNA Not Detected (Not Detected)
== END 2023-12-13 12:15 | disposition home or self-care (01) | DRG 787 ==
LOC: OPB 11:55 → 4S1 11:57 → 4E2 21:26